=== PATIENT | male | born 1960 | race Caucasian/White ===

== ENCOUNTER 2023-05-05 13:12 | Outpatient (CLI) | payer BC, SELFPAY | END 2023-05-05 13:13 | disposition home or self-care (01) | PROVIDERS: PCP Family Medicine; Visit Provider Emergency Medicine | DX: Z00.00 Encounter for general adult medical examination without abnormal findings (principal); Z13.6 Encounter for screening for cardiovascular disorders; Z12.5 Encounter for screening for malignant neoplasm of prostate; Z13.1 Encounter for screening for diabetes mellitus | CPT/HCPCS: 80053; 80061; 84153 ==